=== PATIENT | male | born 1950 | race Caucasian/White ===

== ENCOUNTER → 2018-09-06 | Outpatient (CLI) | payer BC ==
[~2018-09-06] MED LIST: CITA40TA19 PO; ESCI20TA2 PO; LORA1TAB PO; NAPR-243 PO; PREDNISONE; TRM50T PO
--- NOTE | 2018-09-06 10:40 | Diagnostic Imaging Report ---
INDICATION: Mass in the mid back. FINDINGS: Sonographic interrogation of the area of mass was performed. There is a circumscribed ovoid hypoechoic mass at the area of palpable abnormality measuring 1.9 x 0.7 x 2.1 cm. No internal vascularity is present. No other abnormalities are seen. IMPRESSION: There is a benign-appearing hypoechoic solid nodule at the area of palpable abnormality in the patient's mid thoracic back without internal vascularity. Features are nonspecific. Followup could be performed to confirm stability. Dictated by: Dictated on workstation # [id number]
== END ==
LOC: RAD 09:35
PROVIDERS: ATTEND Nurse Practitioner Family
DX: R22.2 Localized swelling, mass and lump, trunk (principal)
CPT/HCPCS: 76999

== ENCOUNTER 2021-08-07 20:28 | Emergency (ER) | payer BC ==
[~2021-08-07] VITALS: Ht 177.8 cm; Wt 80.3 kg
[2021-08-07] MEDS ORDERED: ASPIRIN 81 MG CHEW (CHILDREN'S ASA) PO ONE (20:45)
[2021-08-07 20:54] LABS: BASOPHILS % (AUTO) 1 % (0-10); EOSINOPHILS # (AUTO) 0.1 10^3/uL (0.0-0.3); EOSINOPHILS % (AUTO) 2 % (0-10); HEMATOCRIT 43 % (40-54); HEMOGLOBIN 14.3 g/dL (13.3-17.7); LYMPHOCYTES # (AUTO) 3.5 10^3/uL (1.0-4.0); LYMPHOCYTES % (AUTO) 41 % (12-44); MEAN CORPUSCULAR HEMOGLOBIN 31 pg (25-34); MEAN CORPUSCULAR HGB CONC 33 g/dL (32-36); MEAN CORPUSCULAR VOLUME 94 fL (80-99); MEAN PLATELET VOLUME 8.8 fL (9.0-12.2); MONOCYTES # (AUTO) 0.8 10^3/uL (0.0-1.0); MONOCYTES % (AUTO) 9 % (0-12); NEUTROPHILS % (AUTO) 47 % (42-75); PLATELET COUNT 288 10^3/uL (130-400); WHITE BLOOD COUNT 8.4 10^3/uL (4.3-11.0)
--- NOTE | 2021-08-07 20:56 | ED Chest Pain ---
General Chief Complaint: Chest Pain Stated Complaint: CHEST PAIN Source: patient Exam Limitations: no limitations (CYNDIE HOFFMAN APRN) History of Present Illness Date Seen by Provider: Aug 07, 2021 Time Seen by Provider: 20:53 Initial Comments To ER by private vehicle from home with sharp left-sided chest pain just meets h is clavicle. This does not radiate. No nausea no vomiting no sweating. He also has a left-sided headache. The headache is been ongoing for a few days. The chest pain has been intermittent over the course of the past few days and seems to come about with stress. He states that he has been under quite a bit of stress lately in regards to the relationship with his daughter who lives in [place] given her recent attempt at suicide. Timing/Duration: 1-3 hours Severity/Quality: moderate, sharp Radiation: no radiation Activities at Onset: none ASA po AERONAUTICAL ENGINEERING TECHNOLOGIST: No NTG SL AERONAUTICAL ENGINEERING TECHNOLOGIST: No Associated Symptoms: denies symptoms (CYNDIE HOFFMAN APRN) Allergies and Home Medications Allergies Coded Allergies: No Known Drug Allergies (Verified , 05/20/15) Patient Home Medication List Home Medication List Reviewed: Yes (JULIEN DANIELLE) No Active Prescriptions or Reported Meds Review of Systems Review of Systems Constitutional: see HPI EENTM: No Symptoms Reported Respiratory: No Symptoms Reported Cardiovascular: See HPI, Chest Pain Gastrointestinal: No Symptoms Reported Genitourinary: No Symptoms Reported Musculoskeletal: no symptoms reported Skin: no symptoms reported Psychiatric/Neurological: No Symptoms Reported Endocrine: No Symptoms Reported (CYNDIE HOFFMAN APRN) Past Nukgcdi-Bhgncc-Exmbzm Hx Past Medical History Currently Using CPAP: No Currently Using BIPAP: No Hypertension Reproductive Disorders: No (CYNDIE HOFFMAN APRN) Family Medical History Patient reports no known family medical history. Physical Exam Vital Signs Vital Signs - First Documented 08/07/21 20:38 Temp 36.2 Pulse 91 Resp 16 B/P (MAP) 146/81 (102) Pulse Ox 100 O2 Delivery Room Air (JULIEN DANIELLE) Vital Signs Capillary Refill : (CYNDIE HOFFMAN APRN) Height, Weight, BMI Height: 5'9.00" Weight: 240lbs. oz. 108.767463ky; BMI Method:Stated General Appearance: No Apparent Distress, WD/WN Neck: Full Range of Motion, Normal Inspection Respiratory: No Accessory Muscle Use, No Respiratory Distress Cardiovascular: Regular Rate, Rhythm, Normal Peripheral Pulses Gastrointestinal: Normal Bowel Sounds, Non Tender, Soft Extremity: Normal Capillary Refill, Normal Inspection Neurologic/Psychiatric: Alert, Oriented x3 Skin: Normal Color, Warm/Dry (CYNDIE HOFFMAN APRN) Progress/Results/Core Measures Results/Orders Lab Results Laboratory Tests Test 08/07/21 20:45 08/07/21 22:44 Range/Units White Blood Count 8.4 4.3-11.0 10^3/uL Red Blood Count 4.57 4.30-5.52 10^6/uL Hemoglobin 14.3 13.3-17.7 g/dL Hematocrit 43 40-54 % Mean Corpuscular Volume 94 80-99 fL Mean Corpuscular Hemoglobin 31 25-34 pg Mean Corpuscular Hemoglobin Concent 33 32-36 g/dL Red Cell Distribution Width 12.4 10.0-14.5 % Platelet Count 288 130-400 10^3/uL Mean Platelet Volume 8.8 L 9.0-12.2 fL Immature Granulocyte % (Auto) 0 % Neutrophils (%) (Auto) 47 42-75 % Lymphocytes (%) (Auto) 41 12-44 % Monocytes (%) (Auto) 9 0-12 % Eosinophils (%) (Auto) 2 0-10 % Basophils (%) (Auto) 1 0-10 % Neutrophils # (Auto) 4.0 1.8-7.8 10^3/uL Lymphocytes # (Auto) 3.5 1.0-4.0 10^3/uL Monocytes # (Auto) 0.8 0.0-1.0 10^3/uL Eosinophils # (Auto) 0.1 0.0-0.3 10^3/uL Basophils # (Auto) 0.0 0.0-0.1 10^3/uL Immature Granulocyte # (Auto) 0.0 0.0-0.1 10^3/uL Prothrombin Time 12.4 12.2-14.7 SEC INR Comment 0.9 0.8-1.4 Activated Partial Thromboplast Time 32 24-35 SEC D-Dimer 0.17 0.00-0.49 UG/ML Sodium Level 141 135-145 MMOL/L Potassium Level 3.5 L 3.6-5.0 MMOL/L Chloride Level 103 98-107 MMOL/L Carbon Dioxide Level 26 21-32 MMOL/L Anion Gap 12 5-14 MMOL/L Blood Urea Nitrogen 11 7-18 MG/DL Creatinine 0.90 0.60-1.30 MG/DL Estimat Glomerular Filtration Rate 84 BUN/Creatinine Ratio 12 Glucose Level 122 H 70-105 MG/DL Calcium Level 9.3 8.5-10.1 MG/DL Corrected Calcium 9.3 8.5-10.1 MG/DL Magnesium Level 2.3 1.6-2.4 MG/DL Total Bilirubin 0.3 0.1-1.0 MG/DL Aspartate Amino Transf (AST/SGOT) 16 5-34 U/L Alanine Aminotransferase (ALT/SGPT) 15 0-55 U/L Alkaline Phosphatase 45 40-136 U/L Myoglobin 32.3 10.0-92.0 NG/ML Troponin I < 0.028 < 0.028 <0.028 NG/ML B-Type Natriuretic Peptide 10.0 <100.0 PG/ML Total Protein 6.8 6.4-8.2 GM/DL Albumin 4.0 3.2-4.5 GM/DL Serum Alcohol < 10 <10 MG/DL (JULIEN DANIELLE) Medications Given in ED Current Medications Medications Dose Ordered Sig/Jt Route Start Time Stop Time Status Last Admin Dose Admin Aspirin 324 mg ONCE ONCE PO 08/07/21 20:45 08/07/21 20:46 DC 08/07/21 21:06 324 MG (JULIEN DANIELLE) Vital Signs/I&O 08/07/21 08/07/21 20:38 23:18 Temp 36.2 36.9 Pulse 91 79 Resp 16 16 B/P (MAP) 146/81 (102) 112/73 Pulse Ox 100 94 O2 Delivery Room Air Room Air (JULIEN DANIELLE) Departure Communication (Admissions) EKG shows sinus rhythm at [address] segment elevation or depression no ectopy (CYNDIE HOFFMAN APRN) Impression Primary Impression: Chest pain Qualified Codes: R07.9 - Chest pain, unspecified Disposition: HOME, SELF-CARE Condition: Stable Departure-Patient Inst. Decision time for Depature: 23:18 (JULIEN DANIELLE) Referrals: KAVITA DOBSON MD (PCP/Family) Primary Care Physician WALDO MALIN MD Patient Instructions: Chest Pain (DC) Add. Discharge Instructions: Tuesday morning call Dr. Malin, cardiology and request follow-up appointment in the next 1 to 2 weeks to continue working up your chest pain. Return to the ER promptly for severe, unrelenting chest pain. All discharge instructions reviewed with patient and/or family. Voiced understanding. Scripts No Active Prescriptions or Reported Meds Work/School Note: Work Release Form Date Seen in the Emergency Department: Aug 07, 2021 Return to Work: Aug 09, 2021 Restrictions: No Restrictions Copy Copies To 1: KAVITA DOBSON MD; WALDO MALIN MD, PETER J APRN Aug 07, 2021 20:56 JULIEN DANIELLE Aug 07, 2021 23:19
[2021-08-07] MEDS ORDERED: fentaNYL INJ 100 MCG/2 ML AMP IVP ONE (21:00)
--- NOTE | 2021-08-07 21:07 | Diagnostic Imaging Report ---
PROCEDURE: CT head without contrast. TECHNIQUE: Multiple contiguous axial images were obtained through the brain without the use of intravenous contrast. Auto Exposure Controls were utilized during the CT exam to meet ALARA standards for radiation dose reduction. INDICATION: Headache. The ventricles are normal in size, shape and position. There are no masses or hemorrhages. There are no extra-axial fluid collections. IMPRESSION: Negative CT head. Dictated by: Dictated on workstation # [id number]
[2021-08-07 21:08] LABS: INR 0.9 (0.8-1.4); PROTHROMBIN TIME PATIENT 12.4 SEC (12.2-14.7)
[2021-08-07 21:12] LABS: POTASSIUM 3.5 MMOL/L (3.6-5.0)
[2021-08-07 21:13] LABS: CALCIUM 9.3 MG/DL (8.5-10.1)
[2021-08-07 21:14] LABS: TOTAL PROTEIN 6.8 GM/DL (6.4-8.2)
[2021-08-07 21:16] LABS: BILIRUBIN,TOTAL 0.3 MG/DL (0.1-1.0)
--- NOTE | 2021-08-07 21:16 | Diagnostic Imaging Report ---
INDICATION: Chest pain. EXAMINATION: Portable chest at 8:58 PM. Heart size and pulmonary vascularity are normal. Lungs are clear. There are no effusions or pneumothoraces. IMPRESSION: Negative chest. Dictated by: Dictated on workstation # [id number]
[2021-08-07 21:18] LABS: CREATININE SERUM 0.9 MG/DL (0.60-1.30)
[2021-08-07 21:20] LABS: MAGNESIUM 2.3 MG/DL (1.6-2.4)
[2021-08-07 23:18] VITALS: BP 112/73
== END 2021-08-07 23:34 | disposition home or self-care (01) ==
LOC: EDUNIT# 20:28 → ER 20:30
DX: R07.9 Chest pain, unspecified (principal); I10 Essential (primary) hypertension
CPT/HCPCS: 36415; 70450; 71045; 80053; 80320; 83735; 83874; 83880; 84484; 85025; 85379; 85610; 85730; 93005; 93041

== ENCOUNTER 2022-10-15 17:04 | Emergency (ER) | payer BC ==
[~2022-10-15] VITALS: Ht 177.8 cm; Wt 86.2 kg
[2022-10-15 17:12] VITALS: BP 141/81
[2022-10-15 18:05] LABS: BASOPHILS % (AUTO) 0 % (0-10); EOSINOPHILS # (AUTO) 0.1 10^3/uL (0.0-0.3); EOSINOPHILS % (AUTO) 1 % (0-10); HEMATOCRIT 44 % (40-54); HEMOGLOBIN 15.2 g/dL (13.3-17.7); LYMPHOCYTES # (AUTO) 3.1 10^3/uL (1.0-4.0); LYMPHOCYTES % (AUTO) 29 % (12-44); MEAN CORPUSCULAR HEMOGLOBIN 32 pg (25-34); MEAN CORPUSCULAR HGB CONC 34 g/dL (32-36); MEAN CORPUSCULAR VOLUME 92 fL (80-99); MEAN PLATELET VOLUME 9.1 fL (9.0-12.2); MONOCYTES % (AUTO) 9 % (0-12); NEUTROPHILS # (AUTO) 6.5 10^3/uL (1.8-7.8); NEUTROPHILS % (AUTO) 60 % (42-75); PLATELET COUNT 268 10^3/uL (130-400); WHITE BLOOD COUNT 10.8 10^3/uL (4.3-11.0)
--- NOTE | 2022-10-15 18:31 | ED Lower Extremity ---
General Chief Complaint: Lower Extremity Stated Complaint: CALF PAIN, POSS DVT Nursing Triage Note: PT AMBULATE TO ROOM FT1 WITHOUT DIFFICULTY WITH C/O RIGHT CALF PAIN. PT REPORTS INJURYING RIGHT CALF 09/29/22 WHEN JUMPING OFF OF A CURB. PT REPORTS SEEING PHYSICAL THERAPY FOR THIS C/O. PT REPORTS PAIN IMPROVED AND THAT THE RIGHT CALF STARTED HURTING AGAIN TODAY WHILE WALKING. PT REPORTS TALKING TO HIS PHYSICAL THERAPIST AND WAS TOLD TO COME TO ED OVER CONCERN OF DVT. PT REPORTS PAIN HAS IMPROVED SINCE THIS AFTERNOON. Source: patient Exam Limitations: no limitations (WALTER AMANDA APRN) History of Present Illness Date Seen by Provider: Oct 15, 2022 Time Seen by Provider: 17:30 Initial Comments 71-year-old male presents to the ER with right calf pain. States he had this pain about 2 weeks ago after jumping off of a curb, he saw his friend who is a physical therapist who did not really think it was a blood clot. States the pain came back again today while walking. Reports the pain is in the right calf, in a slightly different location than previous. Denies any recent surgeries. Denies any recent flights. 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 Denies fevers, chest pain, shortness of air, abdominal pain, nausea/vomiting. Denies any past medical history, does not take any medications. (WALTER AMANDA APRN) Allergies and Home Medications Allergies Coded Allergies: No Known Drug Allergies (Verified , 05/20/15) Patient Home Medication List Home Medication List Reviewed: Yes (WALTER AMANDA APRN) No Active Prescriptions or Reported Meds Review of Systems Constitutional: see HPI (WALTER AMANDA APRN) Past Ffunxoa-Sajmst-Rsvicg Hx Patient Social History Tobacco Use?: Yes Tobacco type used: Cigarettes Smoking Status: Light Tobacco Smoker Smokeless Tobacco Frequency: Never a User Use of E-Cig and/or Vaping dev: No Use of E-Cig and/or Vaping Vincent: Never a User Substance use?: No Alcohol Use?: No Pt feels they are or have been: No (WALTER AMANDA APRN) Past Medical History Surgery/Hospitalization HX: SX: VASECTOMY Currently Using CPAP: No Currently Using BIPAP: No Hypertension Reproductive Disorders: No (WALTER AMANDA APRN) Family Medical History Patient reports no known family medical history. Physical Exam Vital Signs Vital Signs - First Documented 10/15/22 17:12 Temp 36.3 Pulse 97 Resp 19 B/P (MAP) 141/81 (101) O2 Delivery Room Air (KRISTEL DARBY MD) Vital Signs Capillary Refill : Less Than 3 Seconds (WALTER AMANDA APRN) Height, Weight, BMI Height: 5'9.00" Weight: 240lbs. oz. 108.088078md; 27.00 BMI Method:Stated General Appearance: WD/WN, no apparent distress Neck: supple, normal inspection Cardiovascular: regular rate, rhythm, no edema, no gallop, no JVD, no murmur Respiratory: lungs clear, normal breath sounds, no respiratory distress, no accessory muscle use Back: normal inspection Legs: right leg soft tissue tenderness (Mild point tenderness), right leg swelling (Slightly larger than left) Neurologic/Psychiatric: alert, normal mood/affect, oriented x 3 Skin: normal color, warm/dry (WALTER AMANDA APRN) Progress/Results/Core Measures Results/Orders Lab Results Laboratory Tests Test 10/15/22 18:00 Range/Units White Blood Count 10.8 4.3-11.0 10^3/uL Red Blood Count 4.81 4.30-5.52 10^6/uL Hemoglobin 15.2 13.3-17.7 g/dL Hematocrit 44 40-54 % Mean Corpuscular Volume 92 80-99 fL Mean Corpuscular Hemoglobin 32 25-34 pg Mean Corpuscular Hemoglobin Concent 34 32-36 g/dL Red Cell Distribution Width 13.3 10.0-14.5 % Platelet Count 268 130-400 10^3/uL Mean Platelet Volume 9.1 9.0-12.2 fL Immature Granulocyte % (Auto) 0 % Neutrophils (%) (Auto) 60 42-75 % Lymphocytes (%) (Auto) 29 12-44 % Monocytes (%) (Auto) 9 0-12 % Eosinophils (%) (Auto) 1 0-10 % Basophils (%) (Auto) 0 0-10 % Neutrophils # (Auto) 6.5 1.8-7.8 10^3/uL Lymphocytes # (Auto) 3.1 1.0-4.0 10^3/uL Monocytes # (Auto) 1.0 0.0-1.0 10^3/uL Eosinophils # (Auto) 0.1 0.0-0.3 10^3/uL Basophils # (Auto) 0.0 0.0-0.1 10^3/uL Immature Granulocyte # (Auto) 0.0 0.0-0.1 10^3/uL D-Dimer 0.37 0.00-0.49 UG/ML (KRISTEL DARBY MD) Vital Signs/I&O 10/15/22 17:12 Temp 36.3 Pulse 97 Resp 19 B/P (MAP) 141/81 (101) O2 Delivery Room Air (KRISTEL DARBY MD) Blood Pressure Mean: 101 Progress Progress Note #1: Time: 17:45 Progress Note Patient seen and evaluated, resting comfortably in recliner, no acute distress. Based on exam and symptoms, concern for right lower extremity DVT. Will order D-dimer and CBC. Wells score -1, low risk. Progress Note #2: Time: 18:34 Progress Note D-dimer negative. CBC within normal limits. Discharge instructions and return precautions provided. (WALTER AMANDA APRN) Departure Impression Primary Impression: Calf pain Disposition: 01 HOME, SELF-CARE Condition: Stable Departure-Patient Inst. Referrals: KAVITA DOBSON MD (PCP/Family) Primary Care Physician Patient Instructions: Muscle and Bone Pain (DC) Add. Discharge Instructions: Return if you continue to have pain, your calf increases in size due to swelling, you develop redness or warmth on the calf, or for any other new, concerning, worsening symptoms. Follow-up with your primary care provider. All discharge instructions reviewed with patient and/or family. Voiced understanding. Scripts No Active Prescriptions or Reported Meds ATTENDING PHYSICIAN NOTE: I was physically present as attending physician in the emergency department during the care of this patient, but I was not directly involved in the decision making or delivery of care for this patient. (KRISTEL DARBY MD) WALTER AMANDA APRN Oct 15, 2022 18:31 KRISTEL DARBY MD Oct 18, 2022 08:10
== END 2022-10-15 18:44 | disposition home or self-care (01) ==
LOC: EDUNIT# 17:04 → ER 17:06
DX: M79.661 Pain in right lower leg (principal); M79.89 Other specified soft tissue disorders; F17.210 Nicotine dependence, cigarettes, uncomplicated; Y93.39 Activity, other involving climbing, rappelling and jumping off
CPT/HCPCS: 36415; 85025; 85379; 99281